=== PATIENT | female | born 1950 | race Caucasian/White ===

== ENCOUNTER 2018-04-12 15:33 | Outpatient (REF) | payer MEDICARE, BC, SELFPAY ==
--- NOTE | 2018-04-12 14:20 | PAPFT_PTH ---
PATIENT: Lucia Yost LOC: [facility] U#:[id number] AGE/SX: 67/F ROOM: RE04/12/[address]: Leeann Cook : 1950 BED: DIS: 04/12/2018 SPEC #: [id number] RECD: 04/12/18 17:12 STATUS: MARIANNE RENaresh #: [id number] MIO: 04/12/18 14:[address]: Leeann Cook DEPT: [facility] Cytology RECD BY: Ivania Singh ENTERED: 04/12/18 17:12 SP TYPE: PAPFT OTHR DR: Akash Salcedo, Tissues: 1 - CX/ENDOCX FOR PAP SMEARS Procedures: PAP THIN PREP/UVM Screening HPV DNA PROBE Comments: [id number]
== END 2018-04-12 15:53 ==
LOC: LBN 15:33
PROVIDERS: PCP Emergency Medicine; Visit Provider Obstetrics & Gynecology Gynecology
DX: Z12.4 Encounter for screening for malignant neoplasm of cervix (principal); Z11.51 Encounter for screening for human papillomavirus (HPV)
CPT/HCPCS: 88142; 87624

== ENCOUNTER 2018-04-24 00:20 | Outpatient (CLI) | payer MEDICARE, BC, SELFPAY ==
--- NOTE | 2018-04-24 13:15 | DI.MAMMO_ITS ---
SYMPTOM/DIAGNOSIS: SCREENING, Z12.31 MAMMOGRAMS: Mammograms were interpreted according to the usual protocol including computer analysis with CAD system, tomosynthesis and C view imaging. Comparison is made with prior examinations. Breast density, B. No suspicious microcalcifications are seen. There is an ovoid, partially obscured, asymmetric density in the outer left breast seen on the craniocaudad view. This area should be further evaluated with a spot compression view. Ultrasound may be indicated at that time. The skin and axilla are unremarkable. No other suspicious masses are seen. IMPRESSION: Additional views of the left breast as described above. Category 0. MQSA ASSESSMENT OF FINDINGS: Incomplete: Needs additional imaging evaluation. Category 0. Patient will receive a letter notifying them of these results. BI-RADS category B. There are scattered areas of fibroglandular density.
== END 2018-04-24 00:40 ==
PROVIDERS: PCP Emergency Medicine; Visit Provider Obstetrics & Gynecology Gynecology
DX: Z12.31 Encounter for screening mammogram for malignant neoplasm of breast (principal); R92.8 Other abnormal and inconclusive findings on diagnostic imaging of breast
CPT/HCPCS: 77063; 77067

== ENCOUNTER 2018-05-03 01:37 | Outpatient (CLI) | payer MEDICARE, BC, SELFPAY ==
--- NOTE | 2018-05-03 14:44 | DI.COMBO_ITS ---
SYMPTOMS/DIAGNOSIS: F/U ABNORMAL MAMMO, LEFT ASYMMETRIC DENSITY ADDITIONAL MAMMOGRAPHIC VIEWS, LEFT BREAST, AND LEFT BREAST ULTRASOUND: Additional images are interpreted according to the usual protocol including tomosynthesis and 2D imaging. Additional mammographic views of the left breast and left breast ultrasound are interpreted in conjunction. These examinations were obtained to evaluate a questionable area of asymmetric density of the left breast seen on recent mammogram. Additional mammographic views fail to show a discrete mass. Breast ultrasound shows no evidence of a mass or cyst. CONCLUSION: No specific evidence of malignancy at this time. Follow-up unilateral left breast mammogram recommended in six months. Category 3, breast density category B. MQSA ASSESSMENT OF FINDINGS: Probably benign. Six month follow-up recommended. Category 3. Patient will receive a letter notifying them of these results. BI-RADS category B. There are scattered areas of fibroglandular density.
== END 2018-05-03 01:57 ==
PROVIDERS: PCP Emergency Medicine; Visit Provider Obstetrics & Gynecology Gynecology
DX: Z12.31 Encounter for screening mammogram for malignant neoplasm of breast (principal); R92.8 Other abnormal and inconclusive findings on diagnostic imaging of breast; N60.12 Diffuse cystic mastopathy of left breast
CPT/HCPCS: 76642; 77063; 77067

== ENCOUNTER 2020-08-17 23:56 | Outpatient (REF) | payer MEDICARE, BC, SELFPAY ==
[2020-08-17 21:53] LABS: Anion Gap 9.9 mmol/L (3-11); BUN 14 mg/dL (7-18); CO2 23.1 mmol/L (21.0-32.0); CREATININE 0.8 mg/dL (0.55-1.02); Calcium 9.6 mg/dL (8.5-10.1); Calculated LDL 106 mg/dL (<100); Chloride 106 mmol/L (98-107); Cholesterol 198 mg/dL (<200); Glucose 99 mg/dL (74-106); HDL Cholesterol 66 mg/dL (40-60); Potassium 4.1 mmol/L (3.5-5.1); Sodium 139 mmol/L (136-145); Triglyceride 133 mg/dL (<150)
== END 2020-08-17 23:57 | disposition home or self-care (01) ==
LOC: LBN 23:56
PROVIDERS: PCP Emergency Medicine; Visit Provider Emergency Medicine
DX: I10 Essential (primary) hypertension (principal)
CPT/HCPCS: 80048; 80061

== ENCOUNTER 2020-08-24 09:56 | Emergency (ER) | payer MEDICARE, BC, SELFPAY ==
--- NOTE | 2020-08-24 09:57 | W.ED.GENAD ---
Discharge Plan Disposition Patient Disposition: HOME Condition: Stable Discharge Details Clinical Impression: Colles' fracture Primary Care Provider: Akash Salcedo ED Provider: Michelle Shrestha Home Meds and New Rx's Prescriptions: New oxycodone 5 mg tablet 5 mg PO Q6H PRN (Reason: pain) Qty: 10 RF: 0 Continued melatonin 5 mg tablet 5 mg PO HS PRNRF: 0 naproxen sodium [Aleve] 220 MG tablet 220 mg PO PRN RF: 0 losartan [Cozaar] 25 mg tablet 25 mg PO DAILY Qty: 90 RF: 3 amlodipine 5 mg tablet 5 mg PO DAILY Qty: 90 RF: 4 gabapentin 300 mg capsule 300 mg PO DAILY Qty: 90 RF: 3 Discharge Instructions Instructions: Wrist Fracture in Adults (ED) Additional Instructions: Rest, ice, and elevate the left wrist as much as possible. Alternate tylenol and ibuprofen as needed and directed for pain. Take the oxycodone for pain not relieved with Tylenol or ibuprofen. Call the orthopedist today to schedule a follow-up appointment for reevaluation. Return immediately to the emergency department if you develop any worsening or concerning symptoms. Referrals: Jorge Luis Chou MD [ [facility] STAFF PHYSICIAN] - Discharge Data Discharge Date/Time-TO BE ENTERED AT DEPARTURE: 08/24/20 12:04 Discharge Physician: Michelle Shrestha Medical Decision Making 70-year-old R hand dominant female presents with left wrist injury after slip and fall onto her outstretched left hand last night. She has edema, ecchymosis and deformity noted to left distal forearm. No open wounds noted. Neurovascular intact. She has taken oxycodone in the past without adverse effect. Will give a dose of oxycodone and refer for left wrist x-ray. X-rays reviewed and note: IMPRESSION: 1. Impacted intra-articular dorsally angulated fracture of the distal left radius. 2. Findings suggestive of a nondisplaced ulnar styloid process fracture. Volar splint and sling placed at bedside. Patient placed on orthopedic follow-up list. Covid swab was obtained in case of possible need for surgical intervention. 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 Case discussed with Dr. Chou who will follow up with patient later this afternoon. Patient may need outpatient closed reduction vs surgical fixation. Medical Records Medical records reviewed: Yes I reviewed the patient's medical records. Imaging Data Radiologic Study: Radiologist's impression: XR WRIST LT COMPLETE and XR forearm LT CLINICAL HISTORY: s/p fall, deformity, r/o radius + ulna fx. TECHNIQUE: 2D digital imaging was performed. COMPARISON: No previous for comparison. FINDINGS: BONES: There is an acute comminuted fracture of the distal left radius which extends into the radiocarpal joint. There is dorsal angulation and impaction of the fracture. There also appears to be a nondisplaced ulnar styloid process fracture. No other fracture or dislocation is appreciated. JOINTS: The carpal bones are normally aligned. SOFT TISSUE: There is soft tissue swelling of the wrist. IMPRESSION: 1. Impacted intra-articular dorsally angulated fracture of the distal left radius. 2. Findings suggestive of a nondisplaced ulnar styloid process fracture. HPI General Mode of arrival: ambulatory. Date/Time Provider Initiated Documentation: 08/24/20 09:57. Limitations to Documentation: no limitations. Information obtained by: patient. HPI Narrative: Patient is a 70-year-old female presents with left wrist pain after fall onto outstretched left hand yesterday. Patient states she was walking with her who has dementia and holding his hand and trying to stabilize him when they slipped and she used her left arm to brace her fall. She last took ibuprofen at 6 AM this morning. She denies any other injuries including shoulder or elbow injury or pain. Related Data Home Medications Medication Instructions Recorded Confirmed naproxen sodium [Aleve] 220 mg PO PRN 12/22/16 08/24/20 melatonin 5 mg tablet 5 mg PO HS PRN 09/04/18 08/24/20 amlodipine 5 mg tablet 5 mg PO DAILY #90 tab-cap 09/30/19 08/24/20 gabapentin 300 mg capsule 300 mg PO DAILY #90 tab-cap 09/30/19 08/24/20 losartan 25 mg tablet 25 mg PO DAILY #90 tab-cap 09/30/19 08/24/20 oxycodone 5 mg PO Q6H PRN #10 tab 08/24/20 Previous Rx's Medication Instructions Recorded amlodipine 5 mg tablet 5 mg PO DAILY #90 tab-cap 09/30/19 gabapentin 300 mg capsule 300 mg PO DAILY #90 tab-cap 09/30/19 losartan 25 mg tablet 25 mg PO DAILY #90 tab-cap 09/30/19 oxycodone 5 mg PO Q6H PRN #10 tab 08/24/20 Allergies Allergy/AdvReac Type Severity Reaction Status Date / Time erythromycin lactobionate Allergy Severe HIVES/THROAT Verified 08/24/20 10:06 [From Erythrocin] SWELLING morphine Allergy Intermediate ITCHING Verified 08/24/20 10:06 sulfamethoxazole Allergy Mild HIVES Verified 08/24/20 10:06 trimethoprim Allergy Mild HIVES Verified 08/24/20 10:06 lisinopril AdvReac Intermediate cough Verified 08/24/20 10:06 Review of Systems All systems reviewed & are unremarkable except as noted in HPI and below Constitutional Constitutional: Reports as per HPI, Denies chills and Denies fever(s) Eyes Eyes: Denies blurry vision ENT Ears, Nose, Mouth, and Throat: Denies dizziness, Denies sore throat and Denies throat swelling Cardiovascular Cardiovascular: Denies chest pain and Denies dyspnea Respiratory Respiratory: Denies cough and Denies dyspnea Gastrointestinal Gastrointestinal: Denies abdominal pain, Denies diarrhea and Denies vomiting Genitourinary Genitourinary: Denies hematuria and Denies dysuria Musculoskeletal Musculoskeletal: Denies back pain, Denies numbness and Reports other (L wrist/forearm injury) Integumentary/Breasts Skin/Breast: Denies lesions and Denies rash Neurologic Neurologic: Denies dizziness, Denies localized weakness and Denies numbness Allergic/Immunologic Allergic/Immunologic: Denies throat swelling [facility] Medical History Anxiety Patient is coping with her 's worsening dementia. HTN (hypertension) Hypertension (03/24/14) 04/06/14; STRESS TEST;NEG FOR ISCHEMIA/NORMAL LV SYSTOLIC FUNCTION Left brachial plexitis Myalgia and myositis Neural foraminal stenosis of lumbar spine ipsilateral. L4-L5. Mod to severe. Osteopenia Osteopenia Peripheral polyneuropathy (03/06/18) left brachial plexitis Sciatica left. chronic numbness Tubular adenoma (04/04/16) 2016. repeat in 5 years Surgical History Appendectomy Arthroscopy, Shoulder (~1992) repair of impingment syndrome left shoulder BACK SURGERY (~03/2010) for sciatica; Dr. Gallego Cholecystectomy Colonoscopy - IV Sedation (04/04/16) Ligation of fallopian tube Social History Smoking/Tobacco Use Status: Former Tobacco Use Second Hand Exposure: No Smoking risk assessment performed?: Yes Alcohol Intake: current Alcohol Intake frequency: 0-2 drinks per day Alcohol type: wine Drug use: Never Substance use type: does not use Household members: spouse Number of Children: 0 Do you feel safe at home: Yes Do you feel safe in your relationship?: Yes Female Reproductive History Menstrual Menopause type: natural History History 0 Para Hx # Term Pregnancies Multiple births Hx # Pregnancies Ectopic pregnancies AB induced Hx Number of Living Children AB spontaneous Exam Const General: cooperative, healthy appearing and no acute distress HENMT Head: normal to inspection Mouth: oral mucosae normal Eyes General: appearance normal, both eyes and all related structures Neck Neck: normal visual inspection Resp Effort & Inspection: normal respiratory effort and able to speak in complete sentences Cardio Rate: regular rate Skin General skin exam: no rashes or lesions noted Neuro General: patient alert, patient awake and patient oriented x3 Motor: muscle tone normal throughout Extrem Left upper extremity: shoulder/upper arm Details: normal ROM; no tenderness and no swelling, elbow/forearm (No tenderness to palpation of left elbow.) Details: tenderness Location: of the mid-shaft forearm (Mid to distal forearm with some deformity noted on volar aspect), abnormal ROM Details: pain with active ROM Details: with extension, with flexion, with pronation and with supination, ecchymosis (Volar distal forearm) and deformity Location: other (Mid to distal forearm with volar angulation); no crepitus, wrist (No left snuffbox tenderness) Details: swelling Location: of the dorsal wrist and of the volar wrist and abnormal ROM Details: pain with active ROM Details: with extension and with flexion and hand Details: normal to inspection, normal capillary refill and vascular exam Details: radial pulse present and ulnar pulse present Elbow/forearm/wrist images: 1. Edema and ecchymosis. No open wounds. Psych Appearance: grossly normal Affect: normal affect Procedures Orthopedic Splinting/Casting Injury #1: Side: left Upper Extremity Injury Location: wrist Upper Extremity Immobilizer: volar splint
[2020-08-24 10:02] VITALS: BP 136/85; PULSE 121; RESP 16; TEMP 36.5; O2SAT 96
[2020-08-24] MEDS: oxyCODONE 5 MG TAB PO (10:36)
--- NOTE | 2020-08-24 10:38 | DI.RAD_ITS ---
EXAM: XR WRIST LT COMPLETE and XR forearm LT CLINICAL HISTORY: s/p fall, deformity, r/o radius + ulna fx. TECHNIQUE: 2D digital imaging was performed. COMPARISON: No previous for comparison. FINDINGS: BONES: There is an acute comminuted fracture of the distal left radius which extends into the radioca rpal joint. There is dorsal angulation and impaction of the fracture. There also appears to be a no ndisplaced ulnar styloid process fracture. No other fracture or dislocation is appreciated. JOINTS: The carpal bones are normally aligned. SOFT TISSUE: There is soft tissue swelling of the wrist. IMPRESSION: 1. Impacted intra-articular dorsally angulated fracture of the distal left radius. 2. Findings suggestive of a nondisplaced ulnar styloid process fracture. DATA REPOSITORY: RADIATION DOSE DELIVERED:
[2020-08-25 15:16] LABS: COVID-19 RT-PCR UVMMC Result Negative (Negative)
--- NOTE | 2020-08-25 15:36 | NUR.NOTE ---
Nursing Note: Lucia notified of Negative Covid test. Verbalizes understanding.----[facility] notified-scheduled for surgery.
== END 2020-08-24 12:04 | disposition home or self-care (01) ==
PROVIDERS: Emergency Provider Physician Assistant; PCP Emergency Medicine
DX: S52.572A Other intraarticular fracture of lower end of left radius, initial encounter for closed fracture (principal); S52.615A Nondisplaced fracture of left ulna styloid process, initial encounter for closed fracture; W18.39XA Other fall on same level, initial encounter; Z03.818 Encounter for observation for suspected exposure to other biological agents ruled out
CPT/HCPCS: 29125; 99284; U0003; U0005; 73090; 73110; 99283

== ENCOUNTER 2020-08-31 09:31 | Day surgery (SDC) | payer MEDICARE, BC, SELFPAY ==
[2020-08-31] VITALS (7 sets, daily range): BP systolic 102–141; BP diastolic 49–92; PULSE 64–106; RESP 9–20; TEMP 36–36.6; O2SAT 95–98
--- NOTE | 2020-08-31 10:09 | PDOC.DSDIS_ITS ---
Discharge Plan Disposition Patient Disposition: HOME Condition: Good Discharge Details Reason For Visit: Left distal radius fracture Attending Provider: Jorge Luis Chou Primary Care Provider: Akash Salcedo Home Meds and New Rx's Prescriptions: Continued melatonin 5 mg tablet 5 mg PO HS PRNRF: 0 naproxen sodium [Aleve] 220 MG tablet 220 mg PO PRN RF: 0 losartan [Cozaar] 25 mg tablet 25 mg PO DAILY Qty: 90 RF: 3 amlodipine 5 mg tablet 5 mg PO DAILY Qty: 90 RF: 4 oxycodone 5 mg tablet 5 mg PO Q6H PRN (Reason: pain) Qty: 10 RF: 0 gabapentin 300 mg capsule 300 mg PO HS RF: 0 acetaminophen [Tylenol] 325 mg Tablet 650 mg PO PRN PRNRF: 0 ibuprofen [Advil] 200 mg Tablet 400 mg PO PRN PRNRF: 0 Discharge Instructions Additional Instructions: Wrist Fracture Fixation Discharge Instructions Activity: You should keep the hand/wrist elevated as much as possible for the first few days. You may use the other fingers as tolerated but avoid trying to do too much too soon. You may perform light activities with the splint in place. Dressing/Cast: Your splint should stay in place at all times. Do NOT get it wet. You may loosen the JENN wrap if you feel it is too tight and then rewrap more loosely. Medications: - You should take Tylenol and Ibuprofen for baseline pain control. - You were prescribed a stronger pain medication, Oxycodone, for breakthrough pain by the ER. If you need a refill please contact our office. - You may apply ice over the wrist, just double bag so it doesn't get wet. Follow-up: 10-14 days Referrals: Jorge Luis Chou MD [ [facility] STAFF PHYSICIAN] - Equipment/Supplies: Splint Activity:: Elevate Remove Dressings/Wound Care:: Do Not Remove Shower/Bathe:: Cover Diet:: As Tolerated Discharge Orders Discharge Orders: Discharge Order (Routine); Ordered 08/31/20 Ordered By: Aleja Vigil DS: Diagnosis Discharge Diagnosis (1) Fracture of left distal radius: Status: Acute
[2020-08-31] MEDS: Lactated Ringers 1,000 ML 80 ML IV (10:17)
[2020-08-31] MEDS: ceFAZolin 2 GM/50 ML BAG IVPB (12:41)
[2020-08-31] MEDS: Bupivacaine 0.5% Pres-Free 30 ML VIAL (12:50)
[2020-08-31] MEDS: EPINEPHrine 1 MG/ML AMP pres-free (12:50)
[2020-08-31] MEDS: fentaNYL 100 MCG/2 ML VIAL IVP ×3 (14:08→14:40)
--- NOTE | 2020-08-31 14:23 | DI.RAD_ITS ---
EXAM: XR WRIST LT LIMITED CLINICAL HISTORY: LEFT WRIST FX TECHNIQUE: COMPARISON: CR XR FOREARM LT from 08/24/2020 FINDINGS: C-arm fluoroscopy was utilized by Dr. Chou during open reduction and internal fixation of fractur e of the distal radius. Hard copy shows plate and screw fixation in place transfixing the fracture f raglester. Fluoro time 1 minutes 21 seconds. IMPRESSION: RADIATION DOSE DELIVERED: Total DLP
[2020-08-31] MEDS: HYDROcodone 5/Acetaminophen 325 TAB PO (15:40)
--- NOTE | 2020-08-31 16:09 | ROE_ITS ---
Date of service: 08/31/20 Time of Service: 14:09 Operative Note Operative Note DATE OF PROCEDURE: 01/30/19 PRE-OP DIAGNOSIS: Left Distal Radius Fracture POST-OP DIAGNOSIS: same PROCEDURE: Open Reduction and Internal Fixation of Left Distal Radius SURGEON: Jorge Luis Chou SENIOR LIBRARIAN: Aleja Vigil ANESTHESIA TYPE: General:No Airway Refer to Anesthesia Record ESTIMATED BLOOD LOSS: 10 PATHOLOGY: none sent TOURNIQUET TIME: 40 COMPLICATIONS: None Patient was transported to: PACU Patient's condition: stable Implants: Synthes [place] Distal Radius Plate - Narrow 3 hole Indications: Lucia is a 70 year old female who I have seen for a distal radius fracture. Given the deformity, displacement, fracture pattern, and effect on daily function, I recommended surgical fixation. I reviewed the risk of the procedure to include bleeding, infection co-pay, stiffness, damage to nerves and vessels, damage to muscles and tendons, malunion, nonunion, hardware prominence, tendon rupture, need for repeat procedures. Despite these risks, the patient elected to proceed. Findings: There is a distal radius fracture which had 3 parts. It was reduced and fixed with a Synthes volar locking plate. Procedure Description: Lucia was greeted in the preoperative holding area. The correct patient and site was confirmed and marked. The history and physical was updated. The consent was reviewed the patient and signed. The patient was taken to the operating room and placed in the supine position. All bony problems were well-padded. The left arm was placed onto a radiolucent hand table. A nonsterile tourniquet was placed high up on the arm. Prophylactic antibiotics in the form of cefazolin were administered. The left arm was prepped with ChloraPrep and draped in a standard fashion. A timeout was performed for safe surgery. A standard longitudinal incision was made overlying the flexor carpi radialis tendon starting at the distal wrist crease and moving proximally. The skin was incised sharply. The flexor carpi radialis tendon and its sheath is identified. The sheath was opened. The tendon was moved ulnarly in the floor of the sheath was incised. Blunt dissection the flexor pollicis longus muscle belly and tendon were also made radially exposing the pronator quadratus and the distal radius. The printer quadratus was elevated with an ulnar-based flap. This exposed the volar distal radius and the fracture. A knox elevator was used for full exposure of the volar surface of the distal radius. The primary fracture line was exposed. Using a series of elevators, curettes, and knife, the fracture was fully debrided of any fibrous tissue and callus formation. I used a freer elevator to help mobilize the fragments. There is one primary transverse fracture line over the volar distal radius and there was a sagittal and coronal split of the epiphyseal fragment. I then performed a closed reduction. Using gentle traction and fracture manipulation, this reduction was held. Fluoroscopic images were used to confirm adequate reduction. An appropriately sized Synthes volar locking plate was then placed onto the bony surface of the distal radius. Was then held there with a distal radius clamp sandwiching the plate to the distal segment. Fluoroscopy was once again used to confirm appropriate positioning of the plate on the distal radius. A reduction K wire was placed into the slotted hole on the shaft but not tightened all the way to allow for manipulation of the distal segment onto the proximal shaft. X-ray was used to confirm plate placement. The reduction K wire unfortunate was not holding completely and therefore I switched this over to a nonlocking screw in the slotted hole. The screw was tightened. The plate was manipulated so that it was centered and in the appropriate position from distal to proximal. In this position I then clamped the back down with the distal radius reduction clamp. X-ray once again showed appropriate positioning of the plate with good reduction. A single nonlocking screw was placed to the distal portion of the plate securing the plate against the bone of the distal radial metaphysis and also to secure the sagittal split. Once again, the plate was evaluated to make sure it was aligned appropriately. The single screw was also checked to make sure it was in appropriate positioning for trajectory of future screws. The remainder of the screws within the volar locking plate were filled with locking screws. These were made sure not to penetrate the dorsal cortex. Fluoroscopy was then used again to confirm appropriate reduction and screw positioning. Nonlocking screws were placed within the proximal two shaft screw holes. Final x-rays were obtained which demonstrated adequate reduction and positioning of hardware. The dorsal sunrise view was also obtained to ensure correct sizing of screws. The wound was then thoroughly irrigated. The pronator quadratus was reapproximated with a 0 Vicryl. The tourniquet was released and there was no notable vascular injury. The fingers were warm and well-perfused. The deep dermal layer was closed with a 2-0 Vicryl. The skin was closed with 4-0 nylon. The wound was dressed with Xeroform, 4 x 4's, web roll. A short arm splint was applied. At the end the case all counts are correct. Patient was transferred [facility] to the PACU in stable condition.
== END 2020-08-31 16:40 | disposition home or self-care (01) ==
PROVIDERS: PCP Emergency Medicine; Visit Provider Student in an Organized Health Care Education/Training Program
PROC: (CPT 25609; principal; 2020-08-31 13:15)
DX: S52.572A Other intraarticular fracture of lower end of left radius, initial encounter for closed fracture (principal); W19.XXXA Unspecified fall, initial encounter
CPT/HCPCS: 25609; C1713; 73100; J0171; J0690; J1100; J1885; J2001; J2405; J3010

== ENCOUNTER 2020-09-13 11:07 | Outpatient (CLI) | payer MEDICARE, BC, SELFPAY ==
--- NOTE | 2020-09-13 10:15 | DI.RAD_ITS ---
EXAM: XR WRIST LT LIMITED CLINICAL HISTORY: s/p ORIF L WRIST. TECHNIQUE: 2D digital imaging was performed. COMPARISON: CR XR WRIST LT LIMITED from 08/31/2020 FINDINGS: BONES: There are stable post operative changes present. No new fracture or dislocation. The nondispl aced ulnar styloid process fracture is stable. JOINTS: The joint spaces are well maintained. No joint effusion is present. SOFT TISSUE: Normal. IMPRESSION: Stable postoperative changes. DATA REPOSITORY: RADIATION DOSE DELIVERED:
== END 2020-09-13 11:08 | disposition home or self-care (01) ==
LOC: DIORS 11:07
PROVIDERS: PCP Emergency Medicine; Referring Provider Emergency Medicine; Visit Provider Physician Assistant
DX: S52.615A Nondisplaced fracture of left ulna styloid process, initial encounter for closed fracture (principal); S52.572A Other intraarticular fracture of lower end of left radius, initial encounter for closed fracture
CPT/HCPCS: 73100

== ENCOUNTER 2020-10-11 16:21 | Outpatient (CLI) | payer MEDICARE, BC, SELFPAY ==
--- NOTE | 2020-10-11 15:15 | DI.RAD_ITS ---
EXAM: XR WRIST LT LIMITED CLINICAL HISTORY: ORIF left distal radius fracture. TECHNIQUE: 2D digital imaging was performed. COMPARISON: X-rays 09/13/2020 FINDINGS: Again noted a volar fixation plate across healing fracture site in the distal radius. There has been some further healing. No hardware loosening no radiographic evidence of osteomyelitis. No signific ant ulnar variance. IMPRESSION: DATA REPOSITORY: RADIATION DOSE DELIVERED:
== END 2020-10-11 16:22 | disposition home or self-care (01) ==
LOC: DIORS 16:21
PROVIDERS: PCP Emergency Medicine; Referring Provider Emergency Medicine; Visit Provider Student in an Organized Health Care Education/Training Program
DX: S52.572D Other intraarticular fracture of lower end of left radius, subsequent encounter for closed fracture with routine healing (principal); X58.XXXD Exposure to other specified factors, subsequent encounter
CPT/HCPCS: 73100

== ENCOUNTER → 2020-11-22 10:21 | Outpatient (BNVA) | payer MEDICARE, BC, SELFPAY | PROVIDERS: PCP Emergency Medicine; Referring Provider Emergency Medicine; Visit Provider Physician Assistant Surgical | DX: S52.572D Other intraarticular fracture of lower end of left radius, subsequent encounter for closed fracture with routine healing (principal); X58.XXXD Exposure to other specified factors, subsequent encounter ==

== ENCOUNTER 2020-11-23 02:02 | Outpatient (CLI) | payer MEDICARE, BC, SELFPAY ==
--- NOTE | 2020-11-23 13:10 | DI.MAMMO_ITS ---
Exam(s) MAMMO SCREENING EXAM: MAMMO SCREENING CLINICAL HISTORY: screening,Z12.39 TECHNIQUE: Mammograms were interpreted according to the usual protocol including computer analysis w [employer] CAD system, tomosynthesis and C-view imaging. COMPARISON: FINDINGS: The breasts are of moderate density with fairly symmetrical distribution of fibroglandular tissue. N o dominant mass or clumped microcalcification is identified in either breast. The current examinatio n is compared with previous examination April 2018 and there has been no gross interval change in a ppearance in comparison with the prior study. IMPRESSION: No specific evidence of malignancy at this time. Routine screening examinations are suggested at yea rly intervals in this age group according to the ACS ACR guidelines. BI-RADS Category 1 - Negative Breast Density - Category B - Scattered areas of fibroglandular density
== END 2020-11-23 02:22 ==
PROVIDERS: PCP Emergency Medicine; Visit Provider Emergency Medicine
DX: Z12.31 Encounter for screening mammogram for malignant neoplasm of breast (principal)
CPT/HCPCS: 77063; 77067

== ENCOUNTER 2022-05-15 03:15 | Outpatient (CLI) | payer MEDICARE, BC, SELFPAY ==
[2022-05-15 12:45] LABS: Abs Immature Grans 0.02 10^3/uL (0.0-0.06); Absolute Basophil Count 0.02 10^3/uL (0.0-0.2); Absolute Eosinophil Count 0.24 10^3/uL (0.0-0.7); Absolute Lymphocyte Count 2.32 10^3/uL (1.2-3.4); Absolute Monocyte Count 0.71 10^3/uL (0.1-0.8); Absolute Neutrophil Count 5.13 10^3/uL (1.2-6.7); Basophils % 0.2; Eosinophils % 2.8; HCT 43.7 % (36.0-46.0); HGB 14.5 g/dL (11.2-15.7); Immature Grans % 0.2; Lymphocytes % 27.5; MCH 31.3 pg (27.0-33.0); MCHC 33.2 % (32.0-36.0); MCV 94 fL (80-95); MPV 9.8 fL (8.0-11.0); Monocytes % 8.4; Neutrophils % 60.9; Platelet Count 307 10^3/uL (130-400); RBC 4.63 10^6/uL (3.93-5.22); RDW 12.5 % (11.7-14.6); RDW-SD 43.2 fL; WBC 8.44 10^3/uL (4.4-10.8)
[2022-05-15 13:07] LABS: Anion Gap 9.6 mmol/L (3-11); BUN 13 mg/dL (7-18); CO2 25.4 mmol/L (21.0-32.0); CREATININE 0.8 mg/dL (0.55-1.02); Calcium 9.5 mg/dL (8.5-10.1); Chloride 105 mmol/L (98-107); Estimated GFR 78.24 (mL/min/1.73m2); Glucose 99 mg/dL (74-106); Potassium 4.5 mmol/L (3.5-5.1); Sodium 140 mmol/L (136-145)
[2022-05-15 13:08] LABS: COMMENT (LAB VIEW ONLY) 125.09 mg/dL; Microalb ug/mg Crea 15.7 ug/mg Cr
== END 2022-05-15 03:16 | disposition home or self-care (01) ==
LOC: LOS 03:15
PROVIDERS: PCP Nurse Practitioner Family; Visit Provider Nurse Practitioner
DX: I10 Essential (primary) hypertension (principal); D36.7 Benign neoplasm of other specified sites; Z80.6 Family history of leukemia
CPT/HCPCS: 36415; 80048; 82043; 82570; 85025

== ENCOUNTER 2022-10-20 00:51 | Outpatient (CLI) | payer MEDICARE, BC, SELFPAY ==
--- NOTE | 2022-10-20 07:45 | DI.MAMMO_ITS ---
Exam(s) MAMMO SCREENING EXAM: MAMMO SCREENING CLINICAL HISTORY: screening,Z12.39 TECHNIQUE: Bilateral full field digital CC and MLO mammographic images were obtained with 3D tomosyn thesis and utilizing computer aided detection (CAD). COMPARISON: Available for comparison. FINDINGS: Masses/Architectural Distortion: There are stable bilateral nodules. No new nodules. No suspicious areas of architectural distortion are seen. Microcalcifications: No suspicious pleomorphic-type are seen. Skin Thickening/Nipple Retraction: None. IMPRESSION: 1. No significant interval change with no specific features of malignancy noted. 2. Unless there is more urgent need, screening mammography is recommended, as per [employer] guidelines. BI-RADS Category 2 - Benign Findings Breast Density - Category B - Scattered areas of fibroglandular density Breast density category C or D implies that the patient has dense breast tissue. Dense breast tissue is very common and is not abnormal but dense breast tissue can make it harder to find cancer on a ma mmogram. Also, dense breast tissue may increase their breast cancer risk. This information about the result of the mammogram report was provided to the patient to raise their awareness. Use this report when you speak with the patient about their risks for breast cancer, which includes their family hist ory. At that time, you may recommend for more screening tests (Ultrasound or MRI) as they might be us eful based on their risk. A negative radiographic report should not delay biopsy if a dominant or clinically suspicious mass is present. Up to ten percent of cancers are not identified on mammography. A negative report may reinforce clinical impression. Adenosis and dense breasts may obscure an underlying neoplasm. False positive reports average 6 to 10%. Patient will receive a letter notifying them of these results.
== END 2022-10-20 01:11 ==
LOC: DI 00:51
PROVIDERS: PCP Nurse Practitioner Family; Visit Provider Nurse Practitioner Family
DX: Z12.31 Encounter for screening mammogram for malignant neoplasm of breast (principal)
CPT/HCPCS: 77063; 77067

== ENCOUNTER 2022-11-29 00:56 | Outpatient (CLI) | payer MEDICARE, BC, SELFPAY ==
--- NOTE | 2022-11-29 07:00 | DI.MRI_ITS ---
Exam(s) MR LUMBAR SPINE WO EXAM: MR LUMBAR SPINE WO CLINICAL HISTORY: hx of back surgery with increased pain,SCIATICA,MYALGIA,MYOSITIS,M54.30. TECHNIQUE: Multiplanar multisequence MRI of the Lumbar spine was performed. COMPARISON: 02 Dec 2016 FINDINGS: Bones: The last intervertebral disc space is designated the L5/S1 level for the numbering purpose of this examination. The vertebral body heights are well maintained. Alignment is satisfactory. The ma rrow signal characteristics are unremarkable. Cord: The conus tip ends at the T12 level. It is of normal size and signal intensity. T12-L1: No disc herniations or bulges are present. No central spinal canal or neural foraminal stenos is. L1-2: Minimal disc bulging. No central spinal canal or neural foraminal stenosis. L2-3: Xcvf-xa-nqjmtpyh loss of disc height, small endplate osteophytes and mild disc bulging. No wilbert tral spinal canal or neural foraminal stenosis. L3-4: Mild posterior disc bulging. Ligamentous hypertrophy and facet degenerative changes cause mild central canal stenosis. No neural foraminal stenosis. L4-5: Con moderate to severe loss of disc height, concentric disc bulging and small osteophytes. Pro minent facet degenerative changes and ligamentous hypertrophy.. Severe central canal stenosis . mi ld spondylolisthesis. No significant neural foraminal narrowing. L5-S1: Severe loss of disc height. Circumferentially projecting osteophytes. Facet degenerative watson nges cause right foraminal encroachment. The visualized SI joints and sacrum are well maintained. Soft tissues: The paraspinal soft tissues are unremarkable. IMPRESSION: Severe central canal stenosis at L4-5. Severe degenerative disc changes at L5-S1 without significant central canal stenosis. Right neural f oraminal narrowing. DATA REPOSITORY:
== END 2022-11-29 01:16 ==
LOC: DI 00:57
PROVIDERS: PCP Nurse Practitioner Family; Visit Provider Nurse Practitioner Family
DX: M48.062 Spinal stenosis, lumbar region with neurogenic claudication (principal); M51.36 Other intervertebral disc degeneration, lumbar region; M54.30 Sciatica, unspecified side
CPT/HCPCS: 72148

== ENCOUNTER → 2023-07-26 12:47 | Outpatient (BNVA) | payer MEDICARE, BC, SELFPAY | PROVIDERS: PCP Nurse Practitioner Family; Referring Provider Nurse Practitioner Family; Visit Provider Physical Therapy Assistant | DX: Z12.11 Encounter for screening for malignant neoplasm of colon (principal); Z86.010 Personal history of colon polyps ==

== ENCOUNTER 2023-08-06 11:17 | Day surgery (SDC) | payer MEDICARE, BC, SELFPAY ==
--- NOTE | 2023-08-05 15:09 | W.PM.DSUDISC ---
Date of service: 08/06/23 Time of Service: 14:08 Discharge Plan Disposition Patient Disposition: Home Condition: Good Discharge Details Reason For Visit: screening colonoscopy Attending Provider: Desmond Estrada Primary Care Provider: Kel Castro Home Meds and New Rx's Prescriptions: Continued naproxen sodium [Aleve] 220 MG tablet 220 mg PO PRN losartan [Cozaar] 25 mg tablet 25 mg PO DAILY Qty: 90 3RF amlodipine 5 mg tablet See Rx Instructions .ROUTE .COMPLEX Qty: 90 4RF Dose Instruction: TAKE ONE TABLET BY MOUTH EVERY DAY Rx Instructions: TAKE ONE TABLET BY MOUTH EVERY DAY acetaminophen [Tylenol] 325 mg Tablet 650 mg PO PRN PRN ibuprofen [Advil] 200 mg Tablet 400 mg PO PRN PRN Discontinued polyethylene glycol 3350 17 gram/dose powder 238 g PO ONCE Qty: 238 0RF Rx Instructions: take per colonoscopy instructions bisacodyl [Dulcolax (bisacodyl)] 5 mg tablet,delayed release (DR/EC) 5 mg PO ONCE Qty: 4 0RF Rx Instructions: take per colonoscopy instructions Discharge Instructions Additional Instructions: Lucia, we were able to complete your colonoscopy today without any issues. It was totally normal. Because of the type of polyps that you had removed previously, I still recommend a 5-year interval for your next colonoscopy. If you have any questions in the meantime, please do not hesitate to call 1. If tolerated, consume a soft, low fiber diet for 1-2 days. 2[address] Do not drive, drink alcohol, operate machinery, make critical decisions, or do activities that require coordination or balance for 24 hours. 3. Because air was put into your colon during the procedure, expelling air from your rectum (passing gas or farting) is normal. 4. You may not have a bowel movement for 1-3 days because of the colonoscopy prep. This is normal. 5. Go directly to the emergency room if you notice any of the following: Develop chills (warm to touch), or if you have a thermometer and your temperature is above 101 Difficulty breathing or difficultly swallowing Persistent vomiting Severe abdominal pain, other than gas cramps Severe chest pain Black, tarry stools Any bleeding ? exceeding one tablespoon 6. Call your physician if the site where your intravenous was started becomes red, swollen, painful, and warm to touch. 7. Your physician has reviewed your pre-procedure medications. Please continue to take those medications as previously ordered. You will be given specific information/education regarding any changes to your medications before leaving. Activity:: Activity as Tolerated Diet:: As Tolerated Discharge Orders Discharge Orders: Discharge Order (Routine); Ordered 08/05/23 Ordered By: Desmond Estrada DS: Diagnosis Discharge Diagnosis (1) Screen for colon cancer: Status: Acute Asessment and Plan: Normal screening colonoscopy; because of the nature of the polyp on the previous colonoscopy, recommend 5-year follow-up
--- NOTE | 2023-08-05 15:10 | COLE_ITS ---
Date of service: 08/06/23 Time of Service: 14:09 Colonoscopy Report Date of procedure: 08/06/23 Pre-op diagnosis general: screening colonoscopy Post-op diagnosis procedure note: other (Negative screening colonoscopy) Procedure: Colonoscopy Surgeon: Desmond Estrada Anesthesia Type: General:No Airway Estimated blood loss (mL): 0 Pathology: none sent Complications: None Disposition: same day Indications: Lucia is a 73 year old woman who needs her next screening colonoscopy Prep: Miralax/Dulcolax Procedure Start Time: 13:45 Procedure End Time: 13:57 Retraction Time: 8 Findings: Negative screening colonoscopy Procedure Description: After the induction of monitored anesthetic care, and with the patient in left lateral decubitus position, I began by performing an external anorectal exam.? Perineum and skin were normal, as was the anal verge.? There was no evidence of external hemorrhoids.? Next, I performed a digital rectal exam.? I did not appreciate any abnormal findings.? Next, I advanced a colonoscope into the recta l vault.? I performed retroflexion.? This was normal.? Using insufflation, I then advanced the colonoscope beyond the rectal folds and into the sigmoid colon before advancing towards the cecum.? The quality of the prep was excellent.? The scope was noted to be in the cecum by identification of the ileocecal valve and appendiceal orifice.? I then began withdrawing the colonoscope using repeated irrigation as necessary for full evaluation of the colonic mucosa. ?Once the scope was withdrawn to the level of the rectum, great care was taken to examine portions of the rectal folds.? I did not see any signs of colon tumors or polyps, or anything else out of the ordinary. Finally, the scope was withdrawn and the patient was brought to the same-day surgery recovery unit as the anesthetic wore off. ?The findings and instructions were shared with the patient prior to discharge. Webster Bowel Prep Webster Bowel Prep Right Colon: 3 Left Colon: 3 Transverse Colon: 3 Total Score: 9
[2023-08-06 11:35] VITALS: BP 143/93; PULSE 116; RESP 16; TEMP 36.5; O2SAT 98
[2023-08-06] MEDS: Lactated Ringers 1,000 ML 80 ML IV (12:05)
--- NOTE | 2023-08-06 12:14 | ANES.PREOP_ITS ---
General Info Date of Service Date Performed: 08/06/23 Height: 5 ft 1 in Weight: 57.8 kg Body Mass Index (BMI): 24.0 Surgical Procedure: Operation Date: 08/06/23 13:35 Proposed Procedure Side Surgeon xuan Estrada MD Meds Allergies and Home Medications Allergies Allergy/AdvReac Type Severity Reaction Status Date / Time erythromycin lactobionate Allergy Severe HIVES/THROAT Verified 08/06/23 11:34 [From Erythrocin] SWELLING morphine Allergy Intermediate ITCHING Verified 08/06/23 11:34 sulfamethoxazole Allergy Mild HIVES Verified 08/06/23 11:34 trimethoprim Allergy Mild HIVES Verified 08/06/23 11:34 lisinopril AdvReac Intermediate cough Verified 08/06/23 11:34 Home Medication Medication Instructions Recorded naproxen sodium 220 mg tablet 220 mg PO PRN 12/22/16 (Aleve) acetaminophen 325 mg tablet 650 mg PO PRN PRN 08/31/20 (Tylenol) ibuprofen 200 mg tablet (Advil) 400 mg PO PRN PRN 08/31/20 losartan 25 mg tablet (Cozaar) 25 mg PO DAILY #90 tab-caps 09/04/22 amlodipine 5 mg tablet See Rx Instructions .Route 01/26/23 .COMPLEX #90 tabs Current Visit Medications: Current Medications Generic Name Dose Route Start Last Admin Trade Name Freq PRN Reason Stop Dose Admin Hyoscyamine Sulfate 0.125 mg 08/05/23 15:12 Hyoscyamine 0.125 Mg Sl/Oral/Chew SL 09/04/23 15:11 DIRECTED PRN Ringer's Solution 1,000 mls @ 80 mls/hr 08/06/23 06:00 08/06/23 12:05 IV 08/06/23 23:59 80 mls/hr INFUSION MARNI Administration IV Miscellaneous Supplies 1 each 08/06/23 06:00 Iv Access IV 08/06/23 23:59 DIRECTED MARNI Ondansetron HCl 4 mg 08/05/23 15:12 Ondansetron 4 Mg/2 Ml Vial IVP 09/04/23 15:11 Q4H PRN PRN Nausea / Vomiting Sodium Chloride 0 ml 08/06/23 06:00 Normal Saline Flush 10 Ml Syr IV 08/06/23 23:59 PRN PRN Sodium Chloride 0 ml 08/06/23 06:00 Normal Saline 10 Ml Vial IJ 08/06/23 23:59 DIRECTED PRN Sterile Water 0 ml 08/06/23 06:00 Water,Injection,Sterile 10 Ml Vial IJ 08/06/23 23:59 DIRECTED PRN PFSH Active Problems Active Problems: Problem Status Onset Code Screen for colon cancer Z12.11 Nasal septal perforation J34.89 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 HTN (hypertension) Left brachial plexitis Neural foraminal stenosis of lumbar spine ipsilateral. L4-L5. Mod to severe. Osteopenia Surgical History Surgical History Appendectomy Arthroscopy, Shoulder (~1992) repair of impingment syndrome left shoulder BACK SURGERY (~03/2010) for sciatica; Dr. Gallego Cholecystectomy Colonoscopy - IV Sedation (04/04/16) Ligation of fallopian tube Tobacco Smoking/Tobacco Use Status: Former Tobacco Use Passive smoking exposure: Yes Second hand exposure: Yes Alcohol Alcohol Intake: current Alcohol intake frequency: a few times a month Alcohol type: wine Substance Use Substance use: Occasionally Substance use type: marijuana Details: THC Oil Prental History History 0 Para Hx # Term Pregnancies Multiple births Hx # Pregnancies Ectopic pregnancies AB induced Hx Number of Living Children AB spontaneous Vital Signs and Lab Results Vital Signs Most Recent Vital Signs in EMR: Most Recent Vital Signs Temp Pulse Resp BP Pulse Ox 36.5 C 116 H 16 143/93 H 98 08/06/23 11:35 08/06/23 11:35 08/06/23 11:35 08/06/23 11:35 08/06/23 11:35 Lab Results Blood Type / Crossmatch: No Data to Display Complete Blood Count: No Data to Display Complete Metabolic Panel: No Data to Display Liver Function Panel: No Data to Display Coagulation Panel: No Data to Display Cardiac Panel: No Data to Display Arterial Blood Gas: No Data to Display Venous Blood Gas: No Data to Display Pancreas Panel: No Data to Display Thyroid Panel: No Data to Display Infectious Disease: No Data to Display Blood Cultures: No Data to Display Toxicology Panel: No Data to Display Imaging and Studies Imaging and Studies Study information below may be from another EMR and interpreted by another pr jonnathan. Please see original notes in EMR for more complete details. Stress Test Summary: Patient Name: LUCIA THOMPSON Unit #: [id number] Loc: DI Ordering Provider: YOLY SALCEDO DO Status: REG CLI Primary Care Provider: YOLY SALCEDO DO Date of Exam: 04/06/14 Sex: F : 1950 Age: 63 Exam(s) [id number] NM:MPI Resting & Stress GRP Reason for exam: NEAR SYNCOPE, 780.2 Medical History: Comment: Department of Nuclear Medicine SPECT Nuclear Cardiology Report Prior: Exercise: X Lexiscan: Dose: 0.4mgm REST: 9.6 mCi 57o-Vz-Pnjlihdhx IV was administered at 0800 AM on 04/06/14 in accordance with established rest protocol procedures. Images of the heart were obtained with SPECT reconstruction. STRESS: 31.4 mCi 25l-[id number]-Zodrtqvff IV was administered at 0935 AM on 04/06/14 in accordance with established stress protocol procedures. Images of the heart were obtained with SPECT reconstruction. INTERPRETATION: View Normal Transient Mixed Fixed Perfusion Defect Defect Defect Short AxisX Vertical Long AxisX Horizontal Long AxisX Low dose, non-diagnostic CT used for attenuation correction only. EJECTION FRACTION: 72% EDV: 10 ml ESV: 37 ml GATED WALL MOTION: ___X___NORMAL OTHER (DESCRIBE) CONCLUSION: Negative for ischemia. TECH: tf CC: YOLY SALCEDO DO Dictated By: ADRIANNA Long [id number] <Electronically signed by ADRIANNA MONTIEL M.D.> 04/07/14 1550 <Electronically signed by Ayo Long > 04/08/14 0926 Transcribed By: Avelino Newman 04/07/14 1520 Technologist: Carlton Thomas This is privileged, confidential information intended only for the provider named. Any use or distribution by any person other than this provider is strictly prohibited. If you receive this report in error, please notify us immediately at [phone] and return the original report to us at the address above. Thank-you. STRESS TEST - NUCLEAR MEDICINE PATIENT NAME: LUCIA THOMPSON UNIT #: [id number] ADMITTING PROVIDER: LAVERNE ECHAVARRIA MD PRIMARY CARE PROVIDER: YOLY SALCEDO DO DATE OF SERVICE: 04/06/14 : 1950 PRE-STRESS EVALUATION DATE: 04/06/14 : 50 HEIGHT: 61 inches WEIGHT: 54 kg. BP: 120/84 PULSE: 70 SUBJECTIVE: Recently seen by PMD for c/o feeling lightheaded and presyncopal. Increased BP noted 170/98 to 200/100. Started on Amlodipine 5mg and Lisinopril 10 mg. Two day follow up showed resolving symptoms and BP 130/80 to 170/90.Cardiac echo done 03/26/14 unremarkable. Smoker: Former Exercises Regularly: yes Lipids: Chol: 182 Diabetes: Neg HDL: 61 [id number] Hypertension: yes LDL: 107 Asthma: neg [facility] Allergies: Erythromycin, morphine, sulfa, trimethoprim. Family History: Brothers HTN, father, CHF. Medications: Lisinopril 10 mg daily, amlodipine 5 mg daily, ASA 325 mg prn, motrin 200 mg prn. PHYSICAL EXAMINATION: LS clear. HR Reg. RESTING 12-LEAD EKG: NSR STRESS TEST REPORT PROTOCOL: Christian TARGET HEART RATE: 133-157% (85-100% of maximal). HEART RATE ACHIEVED: 170 TERMINATION OF EXERCISE: At 6 minutes 31 seconds, because: Patient request. ARRHYTHMIAS: None. ANGINA: None. RESULTS: 1) Chest pain - none 2) Arrhythmia - none 3) EKG changes - none 4) Heart rate/blood pressure response - normal 5) Functional capacity - average 6) Sestamibi imaging demonstrates normal perfusion. Review of the gated image demonstrates an LVEF of 72% with normal regional and global wall motion. CONCLUSION: Negative ischemia. Normal LV systolic function. Dictated by: LAVERNE ECHAVARRIA MD Dictated:: <Electronically signed by LAVERNE ECHAVARRIA M.D Echocardiogram Summary: PriyankLucia L She/Her/Hers 73 F 1950 Allergy/Adv: erythromycin lactobionate, morphine, sulfamethoxazole, trimethoprim, lisinopril Echocardiogram Report PATIENT NAME: LUCIA THOMPSON UNIT #: [id number] ADMITTING PROVIDER: KENAN JACOME MD PRIMARY CARE PROVIDER: YOLY SALCEDO DO DATE OF SERVICE: 03/26/14 : 1950 DATE: 2013 OUT-PATIENT ORDERING PHYSICIAN: Dr. Yoly Salcedo HEIGHT: 5 FT 1 IN WEIGHT: 119 LBS BSA: 1.5 m2 STUDY INDICATIONS: Near syncope. FINDINGS: LEFT VENTRICLE/LVEF: Normal size and systolic function. Normal regional wall motion. Estimated left ventricular ejection fraction 70%. RIGHT VENTRICLE: Normal size and systolic function. AORTIC VALVE: Trileaflet, opens well without regurgitation. MITRAL VALVE: Anatomically normal with trace regurgitation. TRICUSPID VALVE: Trace regurgitation. RSV/PA/RIGHT ATRIAL PRESSURE: Normal. PULMONIC VALVE: Normal. ATRIA: Normal biatrial size. DIASTOLIC INDICES: Normal. GREAT VESSELS: Normal. PERICARDIUM: No effusion. SUMMARY: Normal cardiac anatomy and function. Estimated left ventricular ejection fraction 70%. MEASUREMENTS: LVESD 26 mm LVEDD 44 mm IVS 8 mm PW 8 mm Ascending Aorta mm AO. Root 31 mm AV mm AO Velocity m/sec LA 10 cm sq. RA 9 cm sq. Right atrial pressure mmHg AV-PK/M mmHg LVOT size mm LVOT gradient mmHg Deceleration time msec Isovolumic relaxation time msec E/A ratio IVC collapses ____X__ Yes No Dictated by: KENAN JACOME MD Dictated:: 03/26/14 1527 <Electronically signed by KENAN JACOME M.D.> 04/09/14 0737 Transcribed Date: 03/26/14 Transcribed Time: 172 By: Marci Technologist: Corbin Ferrer Anesthesia Assessment and Plan Anesthesia History Personal History: No History of Anesthesia Complications Family History: No Family History of Anesthesia Complications Exercise Tolerance Exercise Tolerance: Metabolic Equivalents>4 Pertinent Negatives Pertinent Negatives: No Major Cardiovascular Symptoms or Complaints, No Major Pulmonary Symptoms or Complaints and No History of CVA/TIA Cardiac & Pulmonary Exam Cardiac Exam: Normal S1/S2 Heart Sounds Pulmonary Exam: Clear Bilateral Breath Sounds Implantable Cardiac Device Does patient have a Pacemaker or an ICD?: No Airway Exam Known Difficult Airway: No Mallampati Class: 2 Mouth Opening: Normal (> 3cm) Thyromental Distance: Less than 3 cm Neck Range of Motion: Full ROM Neck Circumference: Normal Teeth Condition: Normal Dentition ASA Classification ASA Score: ASA 2 Emergency Case?: Yes NPO Status NPO Status: NPO Clears >2 hours, Solids >8 hours Anesthesia Plan Resuscitation Status: Full Code Anesthesia Technique: General Anesthesia Airway Planned: Natural Airway Monitors Used: Standard Monitors
[2023-08-06 12:59] VITALS: BMI 24.0
[2023-08-06 14:02] VITALS: BP 123/87; PULSE 111; RESP 16; TEMP 36.3; O2SAT 95
--- NOTE | 2023-08-06 14:06 | W.ANESPOSTOP ---
Postoperative Evaluation Vital Signs Most Recent Imported Vital Signs: Most Recent Vital Signs Temp Pulse Resp BP Pulse Ox 36.5 C 116 H 16 143/93 H 98 08/06/23 11:35 08/06/23 11:35 08/06/23 11:35 08/06/23 11:35 08/06/23 11:35 Pain Score Most Recent Pain Score: Most Recent Pain Score Pain Level 0 08/06/23 11:35
--- NOTE | 2023-08-06 14:30 | W.ANESPOSTOP ---
Postoperative Evaluation Date, Time and Location Date Performed: 08/06/23 Time Performed: 14:02 Patient Location: Day Surgery Unit Vital Signs Most Recent Imported Vital Signs: Most Recent Vital Signs Temp Pulse Resp BP Pulse Ox 36.3 C L 111 H 16 123/87 95 08/06/23 14:02 08/06/23 14:02 08/06/23 14:02 08/06/23 14:02 08/06/23 14:02 Most Recent Vital Signs Temp Pulse Resp BP Pulse Ox 36.5 C 116 H 16 143/93 H 98 08/06/23 11:35 08/06/23 11:35 08/06/23 11:35 08/06/23 11:35 08/06/23 11:35 Pain Score Most Recent Pain Score: Most Recent Pain Score Pain Level 0 08/06/23 14:02 Assessment Mental Status: Awake (Alert & Oriented to Patient Baseline) Airway and Respiratory Function: Patent airway with normal (patient baseline) respiratory exam Cardiovascular Function: Hemodynamically Stable Hydration Status: Adequately Hydrated Nausea & Vomiting: No Nausea or Vomiting Pain: Pt. Denies Any Pain Peripheral Nerve Block: Patient did not receive a nerve block
[2023-08-06 14:33] VITALS: BP 148/98; PULSE 78; RESP 16; TEMP 36.3; O2SAT 99
== END 2023-08-06 14:56 | disposition home or self-care (01) ==
LOC: SUR 11:17
PROVIDERS: PCP Nurse Practitioner Family; Visit Provider Surgery
PROC: 0DJD8ZZ Inspection of Lower Intestinal Tract, Via Natural or Artificial Opening Endoscopic (ICD-10-PCS; CPT 45378; principal; 2023-08-06 13:30)
DX: Z12.11 Encounter for screening for malignant neoplasm of colon (principal); I10 Essential (primary) hypertension; Z86.010 Personal history of colon polyps
CPT/HCPCS: G0105; J2704

== ENCOUNTER 2023-10-15 09:38 | Outpatient (REF) | payer MEDICARE, BC, SELFPAY ==
[2023-10-15 15:40] LABS: Anion Gap 13.6 mmol/L (3-11); BUN 14 mg/dL (7-18); CO2 22.4 mmol/L (21.0-32.0); CREATININE 0.8 mg/dL (0.55-1.02); Calcium 9.3 mg/dL (8.5-10.1); Chloride 106 mmol/L (98-107); Estimated GFR 77.75 (mL/min/1.73m2); Glucose 101 mg/dL (74-106); Potassium 4.3 mmol/L (3.5-5.1); Sodium 142 mmol/L (136-145)
== END 2023-10-15 09:39 | disposition home or self-care (01) ==
LOC: LBN 09:38
PROVIDERS: PCP Nurse Practitioner Family; Visit Provider Nurse Practitioner Family
DX: I10 Essential (primary) hypertension (principal)
CPT/HCPCS: 80048

== ENCOUNTER → 2023-10-25 03:25 | Outpatient (CLI) | payer MEDICARE, BC, SELFPAY ==
--- NOTE | 2023-10-25 08:16 | DI.DEXA_ITS ---
Exam(s) XR DEXA BONE DENSITY W/WO KELLE EXAM: XR DEXA BONE DENSITY W/WO KELLE CLINICAL HISTORY: screening for osteoporosis in postmenopausal status,z78.0 TECHNIQUE: COMPARISON: Comparison examination is 07/30/2003. FINDINGS: Lateral Spine Image: Unremarkable. No compression deformities identified. Grade 1 anterolisthesis of L4 on L5 is noted. Left hip: Total T-Score: -1.7. This compares to -0.6 on the prior examination. Total Z-Score: 0.0 T- and Z-scores: Findings are consistent with osteopenia. There is osteoporosis in the femoral neck with a T-score of -2.5. Lumbar Spine: Total T-Score: -2.0. This compares to -1.7 on the prior examination. Total Z-Score: 0.3 T- and Z-scores: Findings are consistent with osteopenia. IMPRESSION: Osteoporosis in the left femoral neck.
== END ==
PROVIDERS: PCP Nurse Practitioner Family; Visit Provider Nurse Practitioner Family
DX: M81.0 Age-related osteoporosis without current pathological fracture (principal); M85.88 Other specified disorders of bone density and structure, other site
CPT/HCPCS: 77080

== ENCOUNTER 2024-10-15 11:05 | Outpatient (CLI) | payer MEDICARE, BC, SELFPAY ==
[2024-10-15 12:42] LABS: Anion Gap 12.6 mmol/L (3-11); BUN 14 mg/dL (7-18); CO2 23.4 mmol/L (21.0-32.0); CREATININE 0.8 mg/dL (0.55-1.02); Calcium 9.6 mg/dL (8.5-10.1); Chloride 104 mmol/L (98-107); Estimated GFR 77.27 (mL/min/1.73m2); Glucose 116 mg/dL (74-106); Potassium 4.3 mmol/L (3.5-5.1); Sodium 140 mmol/L (136-145)
== END 2024-10-15 11:06 | disposition home or self-care (01) ==
PROVIDERS: PCP Nurse Practitioner Family; Referring Provider Nurse Practitioner Family; Visit Provider Nurse Practitioner Family
DX: I10 Essential (primary) hypertension (principal); H90.3 Sensorineural hearing loss, bilateral
CPT/HCPCS: 36415; 80048

== ENCOUNTER 2024-11-05 02:13 | Outpatient (CLI) | payer MEDICARE, BC, SELFPAY ==
--- NOTE | 2024-11-05 08:15 | DI.MAMMO_ITS ---
Exam(s) MAMMO SCREENING EXAM: MAMMO SCREENING CLINICAL HISTORY: screening,z12.39 TECHNIQUE: Bilateral full field digital CC and MLO mammographic images were obtained with 3D tomosyn thesis and utilizing computer aided detection (CAD). COMPARISON: Available for comparison. FINDINGS: Masses/Architectural Distortion: No suspicious masses or areas of architectural distortion are presen t. There are scattered nodules again seen in both breasts some of which have shown decrease in size. Microcalcifications: No suspicious pleomorphic-type are seen. Skin Thickening/Nipple Retraction: None. IMPRESSION: 1. No significant interval change with no specific features of malignancy noted. 2. Unless there is more urgent need, screening mammography is recommended, as per [employer] guidelines. BI-RADS Category 2 - Benign Findings Breast Density - Category B - Scattered areas of fibroglandular density Breast density category C or D implies that the patient has dense breast tissue. Dense breast tissue is very common and is not abnormal but dense breast tissue can make it harder to find cancer on a ma mmogram. Also, dense breast tissue may increase their breast cancer risk. This information about the result of the mammogram report was provided to the patient to raise their awareness. Use this report when you speak with the patient about their risks for breast cancer, which includes their family hist ory. At that time, you may recommend for more screening tests (Ultrasound or MRI) as they might be us eful based on their risk. A negative radiographic report should not delay biopsy if a dominant or clinically suspicious mass is present. Up to ten percent of cancers are not identified on mammography. A negative report may reinforce clinical impression. Adenosis and dense breasts may obscure an underlying neoplasm. False positive reports average 6 to 10%. Patient will receive a letter notifying them of these results.
== END 2024-11-05 02:33 ==
LOC: DI 02:13
PROVIDERS: PCP Nurse Practitioner Family; Visit Provider Nurse Practitioner Family
DX: Z12.31 Encounter for screening mammogram for malignant neoplasm of breast (principal); R92.323 Mammographic fibroglandular density, bilateral breasts; D24.1 Benign neoplasm of right breast; D24.2 Benign neoplasm of left breast
CPT/HCPCS: 77063; 77067

== ENCOUNTER 2025-07-08 13:22 | Emergency (ER) | payer MEDICARE, BC, SELFPAY ==
[2025-07-08 13:26] VITALS: BP 144/81; PULSE 70; RESP 20; TEMP 36.2; O2SAT 99
[2025-07-08 13:28] VITALS: BP 144/81; PULSE 70; RESP 20; TEMP 36.2; O2SAT 99
--- NOTE | 2025-07-08 13:47 | W.ED.GENAD ---
Discharge Plan Disposition Patient Disposition: Home Condition: Stable Discharge Details Clinical Impression: Kidney stone on right side Primary Care Provider: Kel Castro ED Provider: Blayne Hamilton Home Meds and New Rx's Prescriptions: New ondansetron 4 mg tablet,disintegrating 4 mg PO Q8H PRN (Reason: nausea and vomiting) Qty: 30 0RF tamsulosin 0.4 mg capsule 0.4 mg PO DAILY Qty: 14 0RF Rx Instructions: Take 1 capsule daily for 14 days or until you pass the kidney stone Continued amlodipine 5 mg tablet See Rx Instructions .ROUTE .COMPLEX Qty: 90 4RF Dose Instruction: TAKE ONE TABLET BY MOUTH EVERY DAY Rx Instructions: TAKE ONE TABLET BY MOUTH EVERY DAY naproxen sodium [Aleve] 220 MG tablet 220 mg PO PRN losartan [Cozaar] 25 mg tablet 25 mg PO DAILY Qty: 90 3RF acetaminophen [Tylenol] 325 mg Tablet 650 mg PO PRN PRN ibuprofen [Advil] 200 mg Tablet 400 mg PO PRN PRN Discharge Instructions Additional Instructions: You have a 3 mm kidney stone which is almost in the bladder. He would likely pass this on your own. You can take 1000 mg of acetaminophen and 600 mg of ibuprofen every 6 hours as needed. Do not exceed 2000 mg of acetaminophen in a 24-hour period. I placed on a follow-up list to see urology, you should receive a phone call for an appointment. If you feel more ill, have uncontrolled pain, high fevers or persistent vomiting despite the ondansetron return to the emergency department for reevaluation. Stand Alone Forms: Portal Information HPI General Mode of arrival: ambulatory. Date/Time Provider Initiated Documentation: 07/08/25 13:26. Limitations to Documentation: no limitations. Information obtained by: patient. History of Present Illness 75 year old F presents to the emergency department with the chief complaint of right sided abdomen/flank pain, described as moderate, Quality is described as sharp, and is localized to the abdomen. Patient started experiencing this hour(s) (2) and it has been constant. No relieving factors improve symptom(s), No exacerbating factors reported . Patient notes denies chest pain and shortness of breath. Patient did receive the following treatments prior to arrival, none Related Data Home Medications ?Medication ?Instructions ?Recorded ?Confirmed naproxen sodium 220 mg tablet 220 mg PO PRN 12/22/16 07/08/25 (Aleve) acetaminophen 325 mg tablet 650 mg PO PRN PRN 08/31/20 07/08/25 (Tylenol) ibuprofen 200 mg tablet (Advil) 400 mg PO PRN PRN 08/31/20 07/08/25 losartan 25 mg tablet (Cozaar) 25 mg PO DAILY #90 tab-caps 08/29/24 07/08/25 amlodipine 5 mg tablet See Rx Instructions .Route 04/17/25 07/08/25 .COMPLEX #90 tabs ondansetron 4 mg disintegrating 4 mg PO Q8H PRN nausea and 07/08/25 tablet vomiting #30 tabs tamsulosin 0.4 mg capsule 0.4 mg PO DAILY #14 caps 07/08/25 Previous Rx's ?Medication ?Instructions ?Recorded losartan 25 mg tablet (Cozaar) 25 mg PO DAILY #90 tab-caps 08/29/24 amlodipine 5 mg tablet See Rx Instructions .Route 04/17/25 .COMPLEX #90 tabs ondansetron 4 mg disintegrating 4 mg PO Q8H PRN nausea and 07/08/25 tablet vomiting #30 tabs tamsulosin 0.4 mg capsule 0.4 mg PO DAILY #14 caps 07/08/25 Allergies Allergy/AdvReac Type Severity Reaction Status Date / Time erythromycin lactobionate Allergy Severe HIVES/THROAT Verified 07/08/25 13:30 (From Erythrocin) SWELLING morphine Allergy Intermediate ITCHING Verified 07/08/25 13:30 sulfamethoxazole Allergy Mild HIVES Verified 07/08/25 13:30 trimethoprim Allergy Mild HIVES Verified 07/08/25 13:30 lisinopril AdvReac Intermediate cough Verified 07/08/25 13:30 General Stated Complaint: Abd Prob MALIKA: 3 Review of Systems All systems reviewed & are unremarkable except as noted in HPI and below Constitutional Constitutional: Denies chills, Denies fever(s) and Denies weakness Cardiovascular Cardiovascular: Denies chest pain and Denies dyspnea Respiratory Respiratory: Denies cough and Denies dyspnea Gastrointestinal Gastrointestinal: Reports abdominal pain, Reports nausea and Denies vomiting Neurologic Neurologic: Denies weakness Exam Const General: no acute distress Orientation: alert HENMT Head: normal to inspection Ears: external ears normal General nose exam: external nose normal Mouth: moist mucous membranes Eyes General: appearance normal, both eyes and all related structures Neck Neck: normal visual inspection Resp Effort & Inspection: normal respiratory effort and able to speak in complete sentences Cardio Rate: regular rate GI Palpation: soft and tender Skin General skin exam: no rashes or lesions noted Neuro General: patient alert and patient oriented x3 Extrem General: normal to inspection Psych Mental Status: mental status grossly normal Course Vital Signs Vital signs: Vital Signs Temperature 36.2 C L 07/08/25 13:26 Pulse 70 07/08/25 13:26 Respiratory Rate 20 07/08/25 13:26 Blood Pressure 144/81 H 07/08/25 13:26 Pulse Oximetry 99 07/08/25 13:26 Temperature 36.2 C L 07/08/25 13:28 Pulse 70 07/08/25 13:28 Respiratory Rate 20 07/08/25 13:28 Blood Pressure 144/81 H 07/08/25 13:28 Blood Pressure Position Sitting 07/08/25 13:28 Pulse Oximetry 99 07/08/25 13:28 Oxygen Delivery Method Room Air 07/08/25 13:28 Oxygen Flow Rate 0 07/08/25 13:28 Medical Decision Making 75-year-old female with a history of hypertension comes in with chief complaint of acute onset right lower abdomen and flank pain. She says that she was feeling well all day and had just finished traveling when this pain suddenly started. She denies any vomiting but has had nausea. Denies any fevers or chills or chest pain or difficulty breathing. Vital signs stable on arrival, she is tender in the right lower abdomen and also right oblique area. No CVA tenderness. Given the sudden onset of pain I suspect kidney stone but given location of pain could also have appendicitis. Will check a CBC CMP lipase and UA and also obtain a CT abdomen pelvis to further evaluate. Labs unremarkable for emergent findings, patient does have a 3 mm right UVJ stone. No findings to suggest infected stone. She is feeling better and pain was controlled with Toradol and she declines stronger pain medications for home. She will follow-up with urology and return precautions given. 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 repeat in 5 years Sciatica (Acute) left. chronic numbness Peripheral polyneuropathy (Acute 03/06/18) left brachial plexitis Myalgia and myositis (Acute) Hypertension (Acute 03/24/14) 04/06/14; STRESS TEST;NEG FOR ISCHEMIA/NORMAL LV SYSTOLIC FUNCTION Fracture of left distal radius (Acute) S/P ORIF left wrist: 08/31/2020 Family history of leukemia (Acute) Dermatitis (Acute) Decreased hearing of right ear (Acute) Medical History Osteopenia Anxiety Patient is coping with her 's worsening dementia. 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 L4-L5. Mod to severe. HTN (hypertension) Osteopenia Surgical History History of colonoscopy (~07/2023) Ligation of fallopian tube Colonoscopy - IV Sedation (04/04/16) Cholecystectomy BACK SURGERY (~03/2010) for sciatica; Dr. Gallego Arthroscopy, Shoulder (~1992) repair of impingment syndrome left shoulder Appendectomy Family History Mother , 99 No problems noted. Father , 71 No problems noted. Sister Cancer Brother Cancer Social History Smoking/Tobacco Use Status: Former Tobacco Use tobacco type: cigarettes Quit Date: 07/16/05 Tobacco: How many years used: 5 Quit status: quit date established Second Hand Exposure: Yes Smoking risk assessment performed?: Yes Alcohol Intake: current Alcohol Intake frequency: a few times a month Alcohol type: wine Drug use: Occasionally Substance use type: marijuana Details: THC Oil Caregiver/Support person: No Household members: none Housing: house Number of Children: 0 Communication Needs: None Do you need help understanding health information?: Rarely Pets and animals: Yes Pets and animals: cat(s) and dog(s) Sexually active: No Do you think of yourself as: straight/heterosexual Current gender identity: female What is your relationship status?: How often do you talk on the phone with friends or family?: twice per week How often do you get together with friends or relatives?: twice per week How often do you attend yarsanism or sikhism services?: decline to answer Do you belong to any clubs or organized social groups?: no Panel score (0-1 are the most socially isolated patients): 1 What type of physical activity do you participate in: walking Duration: 15-30 minutes/day Frequency: daily Na/Congregation: No preference Special na needs: No Seatbelt use: always Helmet use: Yes Helmet use: sometimes 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 Do you feel safe at home: Yes Do you feel safe in your relationship?: Yes Female Reproductive History Menstrual Menopause type: natural History History 0 Para Hx # Term Pregnancies Multiple births Hx # Pregnancies Ectopic pregnancies AB induced Hx Number of Living Children AB spontaneous PAWSS Have you Been Recently Intoxicated or Drunk Within the Last 30 days?: No Have you Ever Experienced Previous Episodes of Alcohol Withdrawal?: No Have you ever Experienced Withdrawal Seizures?: No Have you ever Experienced Delirium Tremens(DT)s?: No Have you ever undergone Alcohol Rehabilitation Treatment (i.e, inpt ot outpatient treatment programs)?: No Have you ever Experienced Blackouts?: No Have you ever Combined Alcohol with other Downers within the last 90 days?: No Have you ever Combined Alcohol with any other Substance of Abuse during the last 90 days?: No Positive Blood Alcohol level on Presentation? [PCS.BAL]: No Evidence of Increased Autonomic Activity (i.e. HR>120, tremor, sweating, agitation, nausea)?: No Result: 0
[2025-07-08 13:54] LABS: Abs Immature Grans 0.09 10^3/uL (0.0-0.06); HCT 41.1 % (36.0-46.0); HGB 13.8 g/dL (11.2-15.7); Immature Grans % 0.5 %; MCH 30.6 pg (27.0-33.0); MCHC 33.6 % (32.0-36.0); MCV 91 fL (80-95); MPV 8.6 fL (8.0-11.0); Platelet Count 303 10^3/uL (130-400); RBC 4.51 10^6/uL (3.93-5.22); RDW 12.9 % (11.7-14.6); RDW-SD 43.3 fL; WBC 17.18 10^3/uL (4.4-10.8)
[2025-07-08] MEDS: Normal Saline 1,000 ML 1000 ML IV (13:59)
[2025-07-08] MEDS: Ondansetron 4 MG/2 ML VIAL IVP (13:59)
[2025-07-08] MEDS: Ketorolac 15 MG/ML VIAL IVP (14:00)
[2025-07-08 14:16] LABS: Lipase 56 U/L (<53)
[2025-07-08 14:17] LABS: Magnesium 1.9 mg/dL (1.6-2.6)
[2025-07-08 14:19] LABS: ALT 28 U/L (10-49); AST 26 U/L (<34); Albumin 4.5 g/dL (3.2-5.0); Alkaline Phosphatase 111 U/L (46-116); Anion Gap 12 mmol/L (3-11); BUN 15 mg/dL (9-23); Bilirubin, Total 0.7 mg/dL (0.2-1.2); CO2 21.0 mmol/L (20.0-31.0); Calcium 9.9 mg/dL (8.3-10.6); Chloride 105 mmol/L (98-107); Glucose 147 mg/dL (74-106); Potassium 3.8 mmol/L (3.5-5.1); Sodium 138 mmol/L (136-145); Total Protein 7.5 g/dL (5.7-8.2)
[2025-07-08 14:22] LABS: Glucose Negative (Negative)
[2025-07-08] MEDS: Normal Saline Flush 10 ML SYR IVP (14:27)
[2025-07-08] MEDS: Normal Saline - Diluent 50 ML VIAL IJ (14:27)
[2025-07-08] MEDS: Omnipaque 350 MG/ML 100 ML BTL IJ (14:27)
[2025-07-08 14:36] LABS: RBC 20-50 HPF (0-2)
[2025-07-08 14:37] LABS: C & S Indicated? No
--- NOTE | 2025-07-08 14:41 | DI.CT_ITS ---
Exam(s) CT ABDOMEN PELVIS W EXAM: CT ABDOMEN PELVIS W CLINICAL HISTORY: right lower abdomen/flank pain TECHNIQUE: Imaging Protocol: Axial computed tomography images with coronal and sagittal reformatted images were created and reviewed. CONTRAST MATERIAL: Intravenous: Omnipaque 350 Contrast volume:75 mL Oral: No COMPARISON: No exams were available for comparison FINDINGS: ABDOMEN: Lung Bases: No acute abnormality. Liver: Normal density. No measurable mass. Portal, Superior Mesenteric, and Splenic Veins: Unremarkable. Gallbladder and Biliary Tract: The patient is status post cholecystectomy. There is dilatation of the common bile which can be seen following cholecystectomy. Pancreas: Normal density, no abnormal calcifications or inflammatory process. Spleen: Normal. Adrenals: No masses seen. Kidneys: There is scarring in the right kidney. There is a 3 mm right UVJ stone causing [id number] hydronephrosis. There are tiny hypodensities seen in both kidneys. They are too small for further characterization but likely reflect small cysts. There are parapelvic cysts seen bilaterally. No follow-up is recommended. Abdominal Aorta: Abdominal portion non-dilated. Bowel: No obstruction or bowel wall thickening. There is no evidence of appendicitis. Peritoneal Cavity: No ascites, collection or mesenteric inflammatory response. No free air. Lymph Nodes: Within normal limits. Bones: Within normal limits for the patient's age. There is grade 1 anterolisthesis of L4 on L5. There is no spondylolysis present. Soft Tissues: Unremarkable. PELVIS: Bladder: Symmetric distention, no gross wall thickening. Reproductive Organs: Unremarkable as visualized. Lymph Nodes: Within normal limits. Bones: Within normal limits for the patient's age. IMPRESSION: 1. 3 mm right UVJ stone causing [id number] right hydronephrosis. 2. No evidence of appendicitis. RADIATION DOSE DELIVERED: 281.19mGy.cm Total DLP DATA REPOSITORY: All CT scans at this facility are submitted to the National Radiology Data Registry (NRDR) Dose Index Registry (DIR) with the [employer] ([employer]). RADIATION OPTIMIZATION: All CT scans at this facility use at least one of these dose optimization techniques: automated exposure control; mA and/or kV adjustment per patient size (includes targeted exams where dose is matched to clinical indication); or iterative reconstruction.
[2025-07-08 15:24] VITALS: BP 147/65; PULSE 95; TEMP 36.3; O2SAT 98
== END 2025-07-08 15:15 | disposition home or self-care (01) ==
PROVIDERS: Emergency Provider Emergency Medicine; PCP Nurse Practitioner Family
DX: N20.0 Calculus of kidney (principal)
CPT/HCPCS: 99283; 99285; 36415; 96374; 96375; 80053; 83690; 96361; 74177; 81003; 81015; 83735; 85025; J1885; J2405; J3490